=== PATIENT | male | born 1990 | race Caucasian/White ===

== ENCOUNTER 2022-03-06 03:32 | Emergency (ER) | payer SELFPAY ==
[2022-03-06] MEDS ORDERED: Dextrose 5%-Lactated Ringers 1,000 ML IV SCH (04:15)
== END 2022-03-06 07:16 | disposition home or self-care (01) ==
LOC: JD.ED 03:32
DX: R00.2 Palpitations (principal); R11.2 Nausea with vomiting, unspecified; T43.655A Adverse effect of methamphetamines, initial encounter
CPT/HCPCS: 36415; 80053; 80306; 83735; 84443; 84484; 85025; 85379; 86140; 93005; 96360; 99284; J7121; 93010